=== PATIENT | female | born 1985 | race Caucasian/White ===

== ENCOUNTER 2017-09-03 13:44 | Emergency (ER) | payer BC, OTHER ==
[~2017-09-03] VITALS: Ht 165.1 cm; Wt 79.0 kg
[~2017-09-03 13:44] MED LIST: DEXI30CA2 PO; RANI150T PO; Z.0.BCPILL PO
[2017-09-03 13:52] VITALS: BP 128/73; PULSE 69; RESP 18; TEMP 99.2; O2SAT 99
[2017-09-03] MEDS ORDERED: IBUPROFEN 200 MG TAB PO ONE (14:00)
[2017-09-03 14:02] VITALS: BP 128/73; PULSE 69; RESP 18; TEMP 99.2; O2SAT 98
[2017-09-03] MEDS ORDERED: BUME1TAB PO (14:09)
[2017-09-03] MEDS ORDERED: RANI150T PO (14:09)
[2017-09-03] MEDS ORDERED: LEXA10TA PO (14:09)
[2017-09-03] MEDS ORDERED: PANT40TA3 PO (14:09)
[2017-09-03] MEDS ORDERED: LORA1CHW2 CHEW (14:09)
--- NOTE | 2017-09-03 14:09 | PD ---
HPI Chief Complaint: Injury Time Seen by Provider: 13:52 Travel History International Travel<30 days: No Contact w/Intl Traveler<30days: No Traveled to known affect area: No History of Present Illness HPI The patient is a 31-year-old female who presents to the emergency department via EMS for pain over the coccyx after a fall. The patient was at a restaurant when she went to sit down and missed the chair. The patient states she is on limited weightbearing to the left lower extremity after knee surgery performed 2 weeks ago by an orthopedist in [place]. The patient landed on her coccyx and is complaining of coccyx and sacral pain. Patient states the pain is located over the lower sacral coccygeal area, she has difficulty lying on the backside secondary to pain. She does have a history of previous sacral injuries and sees a chiropractor for adjustments. She denies any radiation of the pain down extremities. She denies any other injuries during the fall. Symptoms are mild to moderate, exacerbated after falling, and there are no current alleviating factors. She is currently breast-feeding and request a medicine that is safe during breast-feeding. PFSH Past Medical History Cancer: No Cardiovascular Problems: No Diminished Hearing: No Endocrine: No GERD: Yes Genitourinary: No Hepatitis: No Hiatal Hernia: No Immune Disorder: No Musculoskeletal: Yes (LUMBAR DISC DIS.) Neurologic: No Psychiatric: Yes (PANIC ATTACKS) Reproductive: Yes (ENDOMETRIOSIS HX) Respiratory: No Thyroid Disease: No : 2 Para: 2 Past Surgical History AICD: No Section: Yes (x 2) Gynecologic Surgery: Yes (LAPAROSCOPY, LEEP PROCEDURE, C SECTION (X2)) Joint Replacement: No Pacemaker: No Other Surgery: Yes Social History Alcohol Use: No Tobacco Use: No Substance Use: No Allergies-Medications (Allergen,Severity, Reaction): Coded Allergies: gluten (Unverified Allergy, Severe, THROAT SWELLING, 09/03/17) cat dander (Unverified Allergy, Intermediate, Wheezing, 09/03/17) dog dander (Unverified Allergy, Intermediate, Wheezing, 09/03/17) mold (Unverified Allergy, Intermediate, Wheezing, 09/03/17) Reported Meds & Prescriptions Reported Meds & Active Scripts Active Reported Claritin (Loratadine) 5 Mg Chew 5 Mg CHEW DAILY Lexapro (Escitalopram Oxalate) 10 Mg Tab 10 Mg PO DAILY Bumetanide 1 Mg Tab 1 Mg PO DAILY Ranitidine (Ranitidine HCl) 150 Mg Tab 150 Mg PO BID Pantoprazole (Pantoprazole Sodium) 40 Mg Tab 40 Mg PO DAILY Review of Systems HENT: No: Headaches, Neck Pain Gastrointestinal: No: Nausea, Vomiting Genitourinary: No: Incontinence Musculoskeletal: Positive: Pain Neurologic: No: Paresthesia, Sensory Disturbance Physical Exam Narrative GENERAL: Awake, alert, pleasant 31-year-old female who appears her stated age and is in no acute respiratory distress. SKIN: Focused skin assessment warm/dry. HEAD: Atraumatic. Normocephalic. EYES: No injection or drainage. NECK: Trachea midline. No JVD. MUSCULOSKELETAL: No obvious deformities. No clubbing. No cyanosis. No edema. Back: No tenderness of the mid lumbar thoracic spine. No tenderness of the sacroiliac. Minimal tenderness of the inferior coccyx. There is no visible blood in the perirectal area. The exam was performed in the presence of a female nurse. NEUROLOGICAL: Awake and alert. No obvious cranial nerve deficits. Motor grossly within normal limits. Normal speech. PSYCHIATRIC: Appropriate mood and affect; insight and judgment normal. Data Data Last Documented VS Vital Signs Date Time Temp Pulse Resp B/P (MAP) Pulse Ox O2 Delivery O2 Flow Rate FiO2 09/03/17 14:02 99.2 69 18 128/73 (91) 98 Room Air Orders Orders Sacrum And Coccyx (09/03/17 ) Ibuprofen (Advil) (09/03/17 14:00) MDM Medical Decision Making Medical Screen Exam Complete: Yes Emergency Medical Condition: Yes Medical Record Reviewed: Yes Interpretation(s) Last Impressions Sacrum and Coccyx X-Ray 09/03/17 0000 Signed Impressions: Service Date/Time: Sunday, September 03, 2017 14:38 - CONCLUSION: Negative for fracture or dislocation. Follow up in 7-10 days is suggested if symptoms persist. Dinesh William MD FACR Differential Diagnosis Differential diagnosis includes sacral fracture, coccyx fracture, perforated rectum, contusion, hematoma, mechanical fall. Narrative Course An x-ray of the sacrum and coccyx was obtained. The patient was administered ibuprofen 600 mg orally for pain. X-rays negative for fracture. The patient is advised to sit on a padded pillow or gluteal down it for discomfort. Tylenol and or Motrin as needed for pain. Follow-up with her primary physician. She will be provided a copy of her x-ray results at discharge. Diagnosis Primary Impression: Coccygeal pain Patient Instructions: General Instructions Additional Instructions: Ibuprofen as directed. Sit on a pillow or gluteal donut as needed. Please provide the patient a copy of her x-ray results at discharge. Follow-up with her primary physician. Med/Other Pt SpecificInfo: Prescription(s) given Scripts Ibuprofen (Ibuprofen) 600 Mg Tab 600 MG PO Q6H Y for Pain/Inflammation, #20 TAB 0 Refills Prov: José Miguel Cheng MD 09/03/17 Disposition: 01 DISCHARGE HOME Condition: Stable José Miguel Cheng MD Sep 03, 2017 14:09
--- NOTE | 2017-09-03 14:53 | RADRPT ---
EXAM DATE/TIME: 09/03/2017 14:38 [facility] COMPARISON: No previous studies available for comparison. INDICATIONS : Fell at a restaurant today. MEDICAL HISTORY : None. SURGICAL HISTORY : left hip surgery. ENCOUNTER: Initial ACUITY: 1 day PAIN SCORE: 8/10 LOCATION: sacrum and coccyx FINDINGS: Two-view examination of the sacrum and coccyx demonstrates no evidence of fracture or malalignment. The sacral ala and foramina appear symmetric and intact. The coccyx appears unremarkable. The preve rtebral soft tissues are within normal limits. CONCLUSION: Negative for fracture or dislocation. Follow up in 7-10 days is suggested if symptoms persist. Dinesh William MD FACR on September 03, 2017 at 14:51 Board Certified Radiologist. This report was verified electronically.
[2017-09-03] MEDS ORDERED: IBUP-232 PO (15:17)
== END 2017-09-03 16:09 | disposition home or self-care (01) ==
LOC: NEPD 13:44
DX: M53.3 Sacrococcygeal disorders, not elsewhere classified (principal); K21.9 Gastro-esophageal reflux disease without esophagitis; F41.0 Panic disorder [episodic paroxysmal anxiety]; Z79.899 Other long term (current) drug therapy; Z88.8 Allergy status to other drugs, medicaments and biological substances
CPT/HCPCS: 72220; 99283

== ENCOUNTER 2017-12-29 13:28 | Emergency (ER) | payer BC ==
[~2017-12-29] VITALS: Ht 165.1 cm; Wt 79.5 kg
[~2017-12-29 13:28] MED LIST changes: +BUME1TAB PO; -DEXI30CA2 PO; +IBUP-232 PO; +LEXA10TA PO; +LORA1CHW2 CHEW; +PANT40TA3 PO; -Z.0.BCPILL PO
[2017-12-29 13:33] VITALS: BP 147/76; PULSE 103; RESP 20; TEMP 98.4; O2SAT 98
[2017-12-29] MEDS ORDERED: LEVO5TAB8 PO (13:43)
[2017-12-29] MEDS ORDERED: methylPREDNISolone SOD SUCC 125 MG/2 ML VIAL IV PUSH ONE (13:45)
[2017-12-29] MEDS ORDERED: RESP: ALBUTEROL 2.5 MG/IPRATROPIUM 0.5 MG NEB (SCH) NEB ONE (13:45)
--- NOTE | 2017-12-29 13:46 | PD ---
HPI Chief Complaint: Shortness of breath, itching Time Seen by Provider: 13:31 Travel History International Travel<30 days: No Contact w/Intl Traveler<30days: No Traveled to known affect area: No History of Present Illness HPI This 32-year-old female had an episode today where she became very short of breath and had itching. She was brought by paramedics were given her adrenaline Benadryl and albuterol with some improvement. She has never had a reaction like this before. She is being treated for allergies. She was found to have eosinophilic esophagitis and has been getting desensitizing shots. She had a shot at around 1150 today and soon after started itching around her head and having trouble swallowing and was short of breath. I have spoken to the nurses at the doctor's office and they report that she had what they call a level 2 reaction of induration at the site of the shot PFSH Past Medical History Cancer: No Cardiovascular Problems: No Diminished Hearing: No Endocrine: No Gastrointestinal Disorders: Yes (GERD, GLUTEN INTOL., HX ESOPH. ULCERS) GERD: Yes Genitourinary: No Hepatitis: No Hiatal Hernia: No Immune Disorder: No Musculoskeletal: Yes (LUMBAR DISC DIS.) Neurologic: No Psychiatric: Yes (PANIC ATTACKS) Reproductive: Yes (ENDOMETRIOSIS HX) Respiratory: No Thyroid Disease: No : 3 Para: 3 Past Surgical History AICD: No Section: Yes (x 3) Gynecologic Surgery: Yes (LAPAROSCOPY, LEEP PROCEDURE, C SECTION (X2)) Joint Replacement: No Pacemaker: No Other Surgery: Yes Social History Alcohol Use: No Tobacco Use: No Substance Use: No Allergies-Medications (Allergen,Severity, Reaction): Coded Allergies: gluten (Unverified Allergy, Severe, THROAT SWELLING, 12/29/17) cat dander (Unverified Allergy, Intermediate, Wheezing, 12/29/17) dog dander (Unverified Allergy, Intermediate, Wheezing, 12/29/17) mold (Unverified Allergy, Intermediate, Wheezing, 12/29/17) Reported Meds & Prescriptions Reported Meds & Active Scripts Active Reported Xyzal (Levocetirizine Dihydrochloride) 5 Mg Tablet 1 Tab PO DAILY Lexapro (Escitalopram Oxalate) 10 Mg Tab 10 Mg PO DAILY Ranitidine (Ranitidine HCl) 150 Mg Tab 150 Mg PO BID Pantoprazole (Pantoprazole Sodium) 40 Mg Tab 40 Mg PO DAILY Review of Systems General / Constitutional: No: Fever, Chills Eyes: No: Diploplia, Blurred Vision HENT: No: Headaches Physical Exam Narrative GENERAL: Well-developed female SKIN: Focused skin assessment warm/dry. HEAD: Atraumatic. Normocephalic. EYES: Pupils equal and round. No scleral icterus. No injection or drainage. ENT: No nasal bleeding or discharge. Mucous membranes pink and moist. NECK: Trachea midline. No JVD. CARDIOVASCULAR: Regular rate and rhythm. No murmur appreciated. RESPIRATORY: No accessory muscle use. There is an occasional wheeze. Breath sounds equal bilaterally. GASTROINTESTINAL: Abdomen soft, non-tender, nondistended. Hepatic and splenic margins not palpable. MUSCULOSKELETAL: No obvious deformities. No clubbing. No cyanosis. No edema. NEUROLOGICAL: Awake and alert. No obvious cranial nerve deficits. Motor grossly within normal limits. Normal speech. PSYCHIATRIC: Appropriate mood and affect; insight and judgment normal. Data Data Last Documented VS Vital Signs Date Time Temp Pulse Resp B/P (MAP) Pulse Ox O2 Delivery O2 Flow Rate FiO2 12/29/17 14:00 98 21 12/29/17 13:38 Room Air 12/29/17 13:33 98.4 103 20 147/76 (99) Orders Orders Albuterol-Ipratropium Neb (Duoneb Neb) (12/29/17 13:45) Methylprednisolone So Succ Inj (Solumedr (12/29/17 13:45) Electrocardiogram (12/29/17 13:46) MDM Medical Decision Making Medical Screen Exam Complete: Yes Emergency Medical Condition: Yes Medical Record Reviewed: Yes Differential Diagnosis Differential includes allergic reaction, anaphylaxis, Narrative Course Patient has been stable in the ER. She did receive epi by paramedics. She had some slight wheezing on arrival and has been given some nebulizer treatments with resolution. She has been observed and is stable for discharge. She will be placed on Medrol Dosepak. I have called Dr. Lala's office to advise them of the patient's allergic reaction. They advised that the dose of the allergen had been increased last week Diagnosis Primary Impression: Allergic reaction Scripts Methylprednisolone Dosepak (Medrol Dosepak) 4 Mg Dspk 4 MG PO DIRECTED, #1 DSPK 0 Refills Per Pharmacist direction Prov: Romeo Oleary MD 12/29/17 Disposition: 01 DISCHARGE HOME Condition: Stable Romeo Oleary MD Dec 29, 2017 13:46
[2017-12-29 14:00] VITALS: O2SAT 98
[2017-12-29] MEDS ORDERED: MEDR4PAK PO (14:17)
[2017-12-29 14:59] VITALS: BP 120/69; PULSE 102; RESP 18; O2SAT 97
--- NOTE | 2017-12-30 21:46 | EKG ---
Date Performed: 12/29/2017 Time Performed: 13:53:25 PTAGE: 32 years EKG: SINUS TACHYCARDIA POSSIBLE RIGHT ATRIAL ENLARGEMENT POSSIBLE LEFT ATRIAL ENLARGEMENT ABNORM AL RHYTHM ECG NO PREVIOUS TRACING DOCTOR: Joseph Morel Interpretating Date/Time 12/30/2017 21:44:35
== END 2017-12-29 15:08 | disposition home or self-care (01) ==
LOC: PHED 13:28
DX: T78.40XA Allergy, unspecified, initial encounter (principal); R94.31 Abnormal electrocardiogram [ECG] [EKG]; K21.0 Gastro-esophageal reflux disease with esophagitis
CPT/HCPCS: 93005; 94664; 96374; 99284; J2930